=== PATIENT | female | born 1980 | race Caucasian/White ===

== ENCOUNTER 2021-02-28 15:04 | Day surgery (SDC) | payer OTHER ==
[2021-02-28] MEDS ORDERED: Methylene Blue 50 MG/10 ML Ampule ONE (15:44)
[2021-02-28] MEDS ORDERED: Bupivacaine 0.25% 10 ML SDV ONE (15:44)
--- NOTE | 2021-02-28 16:03 | PCM.PREANE ---
Preanesthetic Assessment - Anesthesia/Transfusion/Family Hx Anesthesia History: Prior Anesthesia Without Reaction Family History of Anesthesia Reaction: No Transfusion History: No Prior Transfusion(s) - Review of Systems General: No Symptoms Pulmonary: No Symptoms, Other (Smokes 2 cig/day) Cardiovascular: No Symptoms, Other (Pt states able to walk up two flights steps with no Chest Pain) Gastrointestinal: Other (GERD) Neurological: No Symptoms Other: Reports: None (HCG 550. Pt accepts increased risk to fetus as surgeon states procedure is emergent and must proceed.) - Physical Assessment NPO Status Date: 02/28/21 NPO Status Time: 09:00 Vital Signs: Last Vital Signs Temp 35.9 C L 02/28/21 15:29 Pulse 80 02/28/21 15:29 Resp 16 02/28/21 15:29 BP 137/86 02/28/21 15:29 Pulse Ox 99 02/28/21 15:29 Height: 1.75 m Weight: 104.916 kg ASA Class: 3E Mental Status: Alert & Oriented x3 Airway Class: Mallampati = 2 Dentition: Reports: Caries (Poor dentition. Pt stats none loose at this time. Pt states she has gingivitis and desires to have teeth removed but insurance will not cover.) Thyro-Mental Finger Breadths: 3 Mouth Opening Finger Breadths: 3 - Allergies Allergies/Adverse Reactions: Allergies Allergy/AdvReac Type Severity Reaction Status Date / Time No Known Allergies Allergy Verified 02/28/21 15:31 - Blood Blood Available: No Product(s) Available: None - Anesthesia Plan Pre-Op Medication Ordered: Antacids - Acknowledgements Anesthesia Type Planned: General Anesthesia Pt an Appropriate Candidate for the Planned Anesthesia: Yes Alternatives and Risks of Anesthesia Discussed w Pt/Guardian: Yes Pt/Guardian Understands and Agrees with Anesthesia Plan: Yes PreAnesthesia Questionnaire - HOME MEDS Home Medications: Home Meds . [No Known Home Meds] 02/28/21 [History] - CURRENT (IN HOUSE) MEDS Current Meds: Current Medications Discontinued Medications Bupivacaine HCl (Bupivacaine 0.25% 10 Ml Sdv) Confirm Administered Dose 20 ml .ROUTE .STK-MED ONE Stop: 02/28/21 15:45 Methylene Blue (Methylene Blue 50 Mg/10 Ml Ampule) Confirm Administered Dose 50 mg .ROUTE .STK-MED ONE Stop: 02/28/21 15:45
[2021-02-28 16:32] LABS: BLOOD UREA NITROGEN,BUN 9 mg/dL (7.0-18.0); CARBON DIOXIDE,CO2 24.6 mmol/L (21.0-32.0); CHLORIDE,CL 104 mmol/L (98-107); GLUCOSE RANDOM 85 mg/dL (74-106); POTASSIUM,K 4.3 mmol/L (3.5-5.1); SODIUM,NA 139 mmol/L (136-145)
[2021-02-28] MEDS ORDERED: fentaNYL 250 MCG/5 ML SDV ONE (16:42)
[2021-02-28] MEDS ORDERED: Propofol 200 MG/20 ML SDV ONE (16:42)
[2021-02-28] MEDS ORDERED: Octyl 2-Cyanoacrylate 1 Tube ONE (17:50)
[2021-02-28] MEDS ORDERED: HYDROmorphone 2 MG/ML Syringe ONE (17:58)
--- NOTE | 2021-02-28 18:35 | PCM48HPAN ---
Post Anesthesia Note - EVALUATION WITHIN 48HRS OF ANESTHETIC Vital Signs in Normal Range: Yes Patient Participated in Evaluation: Yes Respiratory Function Stable: Yes Airway Patent: Yes Cardiovascular Function Stable: Yes Hydration Status Stable: Yes Pain Control Satisfactory: Yes Nausea and Vomiting Control Satisfactory: Yes Mental Status Recovered: Yes Vital Signs: Last Vital Signs Temp 36.6 C 02/28/21 18:19 Pulse 72 02/28/21 18:29 Resp 11 L 02/28/21 18:29 BP 128/71 02/28/21 18:29 Pulse Ox 97 02/28/21 18:29
--- NOTE | 2021-02-28 18:35 | PCM.POSTAN ---
POST ANESTHESIA ASSESSMENT - MENTAL STATUS Mental Status: Alert, Oriented - VITAL SIGNS Vital Signs: Last Vital Signs Temp 36.6 C 02/28/21 18:19 Pulse 72 02/28/21 18:29 Resp 11 L 02/28/21 18:29 BP 128/71 02/28/21 18:29 Pulse Ox 97 02/28/21 18:29 - RESPIRATORY Respiratory Status: Respiratory Rate WNL, Airway Patent, O2 Saturation Stable - CARDIOVASCULAR CV Status: Pulse Rate WNL, Blood Pressure Stable - GASTROINTESTINAL GI Status: No Symptoms - PAIN Pain Score: 0 - POST OP HYDRATION Hydration Status: Adequate & Stable
[2021-02-28] MEDS ORDERED: Desflurane 240 ML Bottle ONE (18:59)
[2021-02-28] MEDS ORDERED: Acetaminophen/oxyCODONE 325-5 MG Tab PO PRN (19:02)
[2021-02-28] MEDS ORDERED: Ketorolac 15 MG/ML SDV IVPUSH ONE (19:02)
[2021-02-28] MEDS ORDERED: Ondansetron 4 MG/2 ML SDV IVPUSH PRN (22:24)
[2021-02-28] MEDS ORDERED: Lactated Ringers 1,000 ML IV SCH (22:30)
--- NOTE | 2021-03-01 01:54 | OR ---
SURGEON: Jere Parada MD DATE OF PROCEDURE: 02/28/2021 INDICATION FOR PROCEDURE: This is a 40-year-old G 5, P 2-0-2-2, at approximately 8 weeks by uncertain last menstrual period, presenting with ectopic . The patient presented to clinic today with concerns of spotting. She had spotting for the past few days. Denies any cramping or pain. She was concerned since she has a history of a miscarriage and ectopic in the past. She previously had a ruptured ectopic on the right side, and had a laparoscopic right salpingectomy. The patient had an ultrasound which showed no intrauterine with a 7 cm x 2 cm complex mass in the left adnexa, concerning for ectopic . The HCG was 550 and progesterone level was low increasing the concern for ectopic. Discussed with the patient that she is not a good candidate for methotrexate treatment due to the large size of the ectopic . Recommended proceeding with laparoscopic salpingectomy or close monitoring of HCG levels since she does not have signs of rupture or active bleeding. The patient desired to proceed with laparoscopic salpingectomy. PREOPERATIVE DIAGNOSIS: Left ectopic . POSTOPERATIVE DIAGNOSIS: Left ectopic . PROCEDURE PERFORMED: Laparoscopic left salpingectomy. Evacuation of hemoperitoneum. TOPOGRAPHIC COMPUTATOR: Julius Robison MD ANESTHESIOLOGIST: Dr. Lonnie Valero CRNA. ANESTHESIA: General anesthesia. FINDINGS: Normal-sized uterus and normal-appearing bilateral ovaries. Left fallopian tube was diffusely dilated with ectopic and surrounding hematoma. There was about 100 mL of blood clots in the pelvis that was extruded from the fimbria of the fallopian tube. Otherwise normal-appearing pelvis and abdomen. ESTIMATED BLOOD LOSS: 100 mL. DESCRIPTION OF PROCEDURE: The risks of procedure were discussed with the patient, including bleeding; infection; DVT; injury to surrounding organs including bladder, bowel, and ureter; questions answered and consent signed. The patient was taken to the operating room. Preop antibiotics were not indicated. She underwent general anesthesia with no complications. Her legs were placed in the dorsal lithotomy position, and her legs supported using stirrups. She was prepped with chlorhexidine and draped in the usual sterile fashion. A straight catheter was used to drain the bladder. Bimanual exam was performed. The uterus was 6-week sized, anteverted and mobile. There was some fullness felt in the left adnexa. The vagina and cervix were normal appearing without masses. A sponge on a ring forceps was placed in the vagina to help manipulate the uterus. Attention was turned to the abdomen. 9 mL of 0.25% Marcaine was used for local anesthesia. A 5 mm incision was made above the umbilicus. The Veress needle was used for entry. Intraperitoneal location was confirmed with saline drop test and low opening pressure. A 5 mm trocar was placed under laparoscopic visualization. There was no vascular or visceral injury noted. Survey of the abdomen noted there was about 100 mL of blood clots in the pelvis. The left fallopian tube was diffusely distended with the ectopic and surrounding hematoma. There appeared to be some blood extruding from the fimbria. Both ovaries and the uterus were normal appearing. The right fallopian tube was surgically absent. A 12 mm trocar was placed in the left lower quadrant under laparoscopic visualization followed by a 5 mm trocar in the right lower quadrant. The suction rfid systems engineer was used to remove the blood clots in the pelvis. The left fallopian tube was grasped at the cornua end and elevated. The LigaSure device was introduced, and the tube was transected then ligated along the mesosalpinx. An EndoCatch bag was placed in the left lower quadrant port, and the fallopian tube was placed in the EndoCatch bag. Attempted to remove the specimen through the left lower quadrant port. However, the specimen was too large due to the hematoma was not able to be removed. The fascial incision was extended with Matthews scissors. I was able to remove the entire specimen in the bag. The port was then re-placed. The pelvis was again irrigated and pedicles examined. There were areas that were bleeding slightly, the LigaSure was used to cauterize the bleeding edge. Hemostasis was confirmed. The pneumoperitoneum was then released, and hemostasis was again confirmed. The fasica of the left lower quadrant incision was closed 0 Vicryl suture in running fashion. The skin incisions were closed with 4-0 Monocryl subcuticularly. Dermabond was placed over the incision. The sponge was removed from the vagina. Sponge, lap, and instrument counts were correct. The patient was then awakened from anesthesia and taken to the recovery room in stable condition. BRINDA RANGEL /[id number] KHALIDA
[2021-03-01 07:09] LABS: BLOOD UREA NITROGEN,BUN 11 mg/dL (7.0-18.0); CARBON DIOXIDE,CO2 27.6 mmol/L (21.0-32.0); CHLORIDE,CL 103 mmol/L (98-107); GLUCOSE RANDOM 111 mg/dL (74-106); POTASSIUM,K 4.1 mmol/L (3.5-5.1); SODIUM,NA 137 mmol/L (136-145)
== END 2021-03-01 10:45 | disposition home or self-care (01) ==
LOC: MW.SDS 15:04 → MW.MS 15:19 → MW.SDS 03-01 10:45
PROVIDERS: ATTEND Obstetrics & Gynecology
DX: O00.90 Unspecified ectopic pregnancy without intrauterine pregnancy (principal); O26.851 Spotting complicating pregnancy, first trimester; Z01.812 Encounter for preprocedural laboratory examination; Z20.822 Contact with and (suspected) exposure to COVID-19; F17.200 Nicotine dependence, unspecified, uncomplicated
CPT/HCPCS: 36415; 59151; 80053; 84702; 85027; 87635; A9270; J1170; J2704; J3010; J3490; J7030; J7120; 00840; U0002